=== PATIENT | male | born 1975 | race Two or more races ===

== ENCOUNTER 2025-03-15 09:09 | Outpatient (CLI) | payer OTHER | END 2025-03-15 09:25 | disposition home or self-care (01) | LOC: RAD 09:09 | PROVIDERS: ATTEND Orthopaedic Surgery Sports Medicine | DX: M22.42 Chondromalacia patellae, left knee (principal); M22.41 Chondromalacia patellae, right knee; M25.461 Effusion, right knee | CPT/HCPCS: 73721 ==